=== PATIENT | female | born 1950 | race Caucasian/White ===

== ENCOUNTER 2023-01-16 06:31 | Day surgery (SDC) | payer MEDICARE, SELFPAY ==
[2023-01-16] MEDS: Lactated Ringers 1,000 ML 15 ML IV (06:45)
--- NOTE | 2023-01-16 06:52 | PCM.HP.STD ---
HPI - General General Date of Admission: 01/16/23 Date of Service: 01/16/23 Chief Complaint: surviallence colonoscopy HPI Narrative ALMA ROSA DE ANDA, is a 72 F who presents for surveillance colonoscopy. She had a colon approximately 2 years ago and discovered to have multiple adenomatous polyps and severe diverticular disease. She also has a past medical history of arthritis, hypothyroidism, hypercholesterolemia and mild anxiety. She is not having any chest pain or shortness of breath. All other 16 review systems are negative except as pertinent positive mentioned HPI. [facility] Medical History Alcohol use Anxiety Depression Diverticulosis High cholesterol History of diverticulitis Hx of colonic polyps Hyperlipidemia Hypothyroidism Non-smoker Thyroid disease Wears glasses Wears hearing aid Home Medications atorvastatin 10 mg tablet 10 mg PO DAILY 10/01/22 [History Last Taken Unknown] calcium citrate 1,000 mg PO DAILY 10/01/22 [History Last Taken Unknown] cholecalciferol (vitamin D3) 1,250 mcg (50,000 unit) capsule 1,250 mcg PO QWEEK 10/01/22 [History Last Taken Unknown] clorazepate dipotassium 7.5 mg tablet 7.5 mg PO BID PRN anxiety 10/01/22 [History Last Taken Unknown] denosumab 60 mg/mL subcutaneous syringe (Prolia) 60 mg subcut [id number] 10/01/22 [History Last Taken Unknown] fluoxetine 40 mg capsule 80 mg PO DAILY 10/01/22 [History Last Taken Unknown] lamotrigine 100 mg tablet (Lamictal) 100 mg PO DAILY 10/01/22 [History Last Taken Unknown] levothyroxine 75 mcg capsule 75 mcg PO SUTUTHSA 10/01/22 [History Last Taken Unknown] mecobalamin (vitamin B12) 1,000 mcg chewable tablet 1,000 mcg PO DAILY 10/01/22 [History Last Taken Unknown] polyethylene glycol 3350 17 gram/dose oral powder (Miralax) 4 g PO DAILY PRN constipation 10/01/22 [History Last Taken Unknown] levothyroxine 37.5 mcg capsule 37.5 mcg PO MOWEFR 01/14/23 [History Last Taken Unknown] Allergy/AdvReac Type Severity Reaction Status Date / Time nitrofurantoin Allergy Severe Nausea/Vom/ Verified 01/14/23 14:11 [From Macrodantin] Diarrhea Surgical History History of colonoscopy Hx of breast biopsy Social History (Updated 10/01/22 @ 14:37 by Anahy Mcclelland) household members: spouse current occupational status: retired Smoking Status: Never smoker alcohol intake: current ROS Review of Systems ROS Unobtainable: other Constitutional Constitutional: Denies fatigue, fever(s), poor appetite, weight gain or weight loss ENT HEENT: Denies mouth lesions Cardiovascular Cardiovascular: Denies abdominal bloating, abdominal edema or abdominal pain Respiratory/Chest Respiratory/Chest: Denies change in mental status, change in phlegm color, chest congestion or chest tightness Gastrointestinal Gastrointestinal: Denies belching, bloating, change in bowel habits, change in stool character, chewing difficulty, coffee ground emesis, constipation, cramping, diarrhea, dyspepsia, dysphagia, early satiety, excessive flatus, fecal incontinence, heartburn, hematemesis, hematochezia, hemorrhoids, loose stools, melena, nausea, odynophagia, rectal bleeding, tenesmus, vomiting or weight changes Genitourinary Genitourinary: Denies abdominal discomfort, burning urination or itching Musculoskeletal Musculoskeletal: Reports as per HPI; Denies muscle weakness or myalgias Integumentary Integumentary: Denies jaundice Neurologic Neurologic: Denies lack of coordination or weakness Psychiatric Psychiatric: Denies confusion, depression, memory loss, mood swings, paranoia or suicidal ideation Endocrine Endocrinology: Denies systems reviewed and no addt'l complaints, except as documented Hematologic/Lymphatic Hematologic/Lymphatic: Denies anemia, easy bleeding, easy bruising or lymphadenopathy Allergic/Immunologic Allergic/Immunologic: Denies systems reviewed and no addt'l complaints, except as documented Physical Exam Const alert General Appearance: cooperative Orientation / Consciousness: oriented to person HEENT hearing grossly normal bilaterally Head and Scalp: normal to inspection Face and Sinus: face symmetric Nose: external nose normal Mouth: oral and palatal mucosa normal Eyes conjunctivae normal General Eye: normal appearance of both eyes Neck full ROM General: normal visual inspection Lymph Lymphatic: no lymphadenopathy noted Chest inspection of chest normal and palpation of chest normal Chest: symmetrical chest wall rise Resp normal respiratory effort Effort and Inspection: able to speak in complete sentences Cardio regular rate GI non-distended Percussion: normal to percussion Rectal Exam: deferred Neuro Speech: speech normal Gait (Neuro): normal gait Assessment & Plan Assessment/Plan (1) Encounter for screening for malignant neoplasm of colon: PLAN: She was explained alternatives, risk, benefits including not withstanding bleeding, infection, sepsis, perforation, need for emergent surgery . She will have an ASA of 2.
[2023-01-16 07:08] VITALS: BP 147/76; PULSE 72; RESP 17; TEMP 36.7; O2SAT 99; BMI 26.6
[2023-01-16 08:05] VITALS: BP 122/63; BP 147/76; PULSE 61; RESP 16; TEMP 36.5; O2SAT 96
--- NOTE | 2023-01-16 08:06 | OP.CCLET_ITS ---
01/16/2023 Mode Hansen Do Re : Colonoscopy procedure for Merle Wilkins Dear Jade This procedure was performed on Monday, January 16, 2023. My impressions and recommendations are as follows: Impressions : - Diverticulosis in the recto-sigmoid colon, in the sigmoid colon and in the descending colon. - The examination was otherwise normal on direct and retroflexion views. - No specimens collected. Recommendations : - Discharge patient to home. - Resume previous diet. - Continue present medications. - Repeat colonoscopy in 5 years for surveillance. My findings are described in the full procedure note, which is enclosed. If I can be of further assistance, please feel free to contact me at . Sincerely, Pantera Ryan, 01/16/2023 8:06:10 AM This report has been signed electronically.
--- NOTE | 2023-01-16 08:06 | OP.COLON_ITS ---
Patient Name: Merle Wilkins Procedure Date: 01/16/2023 7:35 AM Date of : 1950 Age: 72 Procedure: Colonoscopy Indications: Follow-up for history of adenomatous polyps in the colon Providers: Pantera Ryan DO Medicines: Monitored Anesthesia Care Patient Profile: This is a 72 year old female. Refer to note in patient chart for documentation of history and physical. Last Colonoscopy: within the past 3 years. Complications: No immediate complications. Procedure: Pre-Anesthesia Assessment: - Prior to the procedure, a History and Physical was performed, and patient medications and allergies were reviewed. The patient is competent. The risks and benefits of the procedure and the sedation options and risks were discussed with the patient. All questions were answered and informed consent was obtained. Patient identification and proposed procedure were verified by the physician in the pre-procedure area. Mental Status Examination: alert and oriented. Respiratory Examination: clear to auscultation. CV Examination: normal. Prophylactic Antibiotics: The patient does not require prophylactic antibiotics. Prior Anticoagulants: The patient has taken no anticoagulant or antiplatelet agents. ASA Grade Assessment: II - A patient with mild systemic disease. After reviewing the risks and benefits, the patient was deemed in satisfactory condition to undergo the procedure. The anesthesia plan was to use monitored anesthesia care (MAC). Immediately prior to administration of medications, the patient was re-assessed for adequacy to receive sedatives. The heart rate, respiratory rate, oxygen saturations, blood pressure, adequacy of pulmonary ventilation, and response to care were monitored throughout the procedure. The physical status of the patient was re-assessed after the procedure. After I obtained informed consent, the scope was passed under direct vision. Throughout the procedure, the patient's blood pressure, pulse, and oxygen saturations were monitored continuously. The Colonoscope was introduced through the anus and advanced to the cecum, identified by appendiceal orifice and ileocecal valve. The colonoscopy was performed without difficulty. The patient tolerated the procedure well. The quality of the bowel preparation was adequate. The ileocecal valve, appendiceal orifice, and rectum were photographed. Scope In: 7:44:39 AM Scope Withdrawal Time 0 hours 9 minutes 18 seconds Scope Out: 8:01:21 AM Total Procedure Duration Time 0 hours 16 minutes 42 seconds Findings: The perianal and digital rectal examinations were normal. Multiple small and large-mouthed diverticula were found in the recto-sigmoid colon, sigmoid colon and descending colon. The exam was otherwise without abnormality on direct and retroflexion views. Impression: - Diverticulosis in the recto-sigmoid colon, in the sigmoid colon and in the descending colon. - The examination was otherwise normal on direct and retroflexion views. - No specimens collected. Recommendation: - Discharge patient to home. - Resume previous diet. - Continue present medications. - Repeat colonoscopy in 5 years for surveillance. Procedure Code(s): --- Professional --- 40181, Colonoscopy, flexible; diagnostic, including collection of specimen(s) by brushing or washing, when performed (separate procedure) CPT copyright 2021 [employer]. All rights reserved. The codes documented in this report are preliminary and upon electronic warfare officer review may be revised to meet current compliance requirements. Pantera Ryan DO 01/16/2023 8:06:10 AM This report has been signed electronically. Number of Addenda: 0 Note Initiated On: 01/16/2023 7:35 AM
[2023-01-16 08:10] VITALS: BP 116/67; BP 147/76; PULSE 16; RESP 96; TEMP 15.5; O2SAT 95
[2023-01-16 08:15] VITALS: BP 118/63; BP 147/76; PULSE 62; RESP 16; O2SAT 96
[2023-01-16 08:20] VITALS: BP 133/66; BP 147/76; PULSE 62; RESP 16; TEMP 36.2; O2SAT 98
[2023-01-16 08:32] VITALS: BP 147/76
== END 2023-01-16 08:48 | disposition home or self-care (01) ==
LOC: EN 06:35 → AC 06:36
PROVIDERS: PCP Student in an Organized Health Care Education/Training Program; Referring Provider Student in an Organized Health Care Education/Training Program; Visit Provider Internal Medicine Gastroenterology
PROC: 0DJD8ZZ Inspection of Lower Intestinal Tract, Via Natural or Artificial Opening Endoscopic (ICD-10-PCS; CPT 45378; principal; 2023-01-16 07:25)
DX: Z12.11 Encounter for screening for malignant neoplasm of colon (principal); K57.30 Diverticulosis of large intestine without perforation or abscess without bleeding; E78.00 Pure hypercholesterolemia, unspecified; E03.9 Hypothyroidism, unspecified; F41.9 Anxiety disorder, unspecified; Z79.899 Other long term (current) drug therapy; Z86.010 Personal history of colon polyps
CPT/HCPCS: 45378; J7120; J2405